=== PATIENT | female | born 1965 | race Caucasian/White ===

== ENCOUNTER 2017-05-09 18:39 | Emergency (ER) | payer BC, OTHER ==
[2017-05-09] MEDS ORDERED: Tobramycin 0.3% Ophth Oint 3.5 GM Tube EYELF ONE (19:13)
--- NOTE | 2017-05-09 19:21 | EDM.PDOC ---
ED HPI GENERAL MEDICAL PROBLEM - General Chief Complaint: Eye Problems Stated Complaint: POSSIBLE EYE INFECTION- LEFT EYE Time Seen by Provider: 05/09/17 19:07 - History of Present Illness INITIAL COMMENTS - FREE TEXT/NARRATIVE: HISTORY AND PHYSICAL: History of present illness: The patient is a 51-year-old female who presents with a 2 week history of eye irritation and some swelling that she thought was a stye which she place warm compresses on it and it seemed to get improved but over the last few days it has worsened again. She is not having blurred vision headache or other systemic complaints of fever chills runny nose sore throat head or neck pain. Her eye does not hurt she just feels that the eyelid is swollen and discomforting. She has some eye drainage and some crusting when she wakes up. Review of systems: As per history of present illness and below otherwise all systems reviewed and negative. Past medical history: As per history of present illness and as reviewed below otherwise noncontributory. Surgical history: As per history of present illness and as reviewed below otherwise noncontributory. Social history: No reported history of drug or alcohol abuse. Family history: As per history of present illness and as reviewed below otherwise noncontributory. Physical exam: General: Well-developed well-nourished female who is nontoxic and vital signs are noted by me. HEENT: Atraumatic, normocephalic, pupils reactive, EOMs are intact, there is some diffuse swelling upper eyelid margin on the left more laterally but no focal area is seen. There is minimal redness of the inside of the upper lid and minimal conjunctival erythema, there is no gross drainage or crusting appreciated, the sclera is slightly injected, the right eye is without any defects or deformities, negative for conjunctival pallor or scleral icterus, mucous membranes moist, throat clear, neck supple, nontender, trachea midline. Lungs: Clear to auscultation, breath sounds equal bilaterally, chest nontender. Heart: S1S2, regular rate and rhythm no overt murmurs Abdomen: Soft, nondistended, nontender. NABS Pelvis: Deferred Genitourinary: Deferred. Rectal: Deferred. Extremities: Atraumatic, negative for cords or calf pain. Neurovascular unremarkable. Neuro: Awake, alert, oriented. Cranial nerves II through XII unremarkable. Cerebellum unremarkable. Motor and sensory unremarkable throughout. Exam nonfocal. Diagnostics: visual acuity---20/20 right left and both Therapeutics: tobramycin ointment for ED and home Impression: Blepharitis, left Definitive disposition and diagnosis as appropriate pending reevaluation and review of above. Left Eyelid Pain Score (Numeric/FACES): 2 - Related Data Allergies Allergy/AdvReac Type Severity Reaction Status Date / Time No Known Allergies Allergy Verified 05/09/17 18:57 Home Meds: Home Meds Levothyroxine 25 mcg PO ACBREAKFAST 08/19/14 [History] Meloxicam 15 mg PO DAILY 05/09/17 [History] Social & Family History - Family History Family Medical History: Noncontributory - Tobacco Use Smoking Status *Q: Current Every Day Smoker Years of Tobacco use: 30 Packs/Tins Daily: 1 - Recreational Drug Use Recreational Drug Use: No ED ROS GENERAL - Review of Systems Review Of Systems: ROS reveals no pertinent complaints other than HPI. ED EXAM GENERAL W FULL EYE - Physical Exam Exam: See Below (See dictation) Course - Vital Signs Last Recorded V/S: Last Vital Signs Temp 36.7 C 05/09/17 19:01 Pulse 80 05/09/17 19:01 Resp 18 05/09/17 19:01 BP 145/84 H 05/09/17 19:01 Pulse Ox 96 05/09/17 19:01 - Orders/Labs/Meds Orders: Active Orders 24 hr Category Date Time Status Tobramycin [Tobrex 0.3% Ophth Oint] Med 05/09/17 19:13 Once 0.25 gm EYELF ONETIME ONE Departure - Departure Time of Disposition: 19:22 Disposition: Home, Self-Care 01 Condition: Good Clinical Impression: Blepharitis Qualifiers: Blepharitis type: unspecified type Laterality: left Eyelid: upper Qualified Code(s): H01.004 - Unspecified blepharitis left upper eyelid - Discharge Information Referrals: Keke Power PA-C [Primary Care Provider] - Additional Instructions: The following information is given to patients seen in the emergency department who are being discharged to home. This information is to outline your options for follow-up care. We provide all patients seen in our emergency department with a follow-up referral. The need for follow-up, as well as the timing and circumstances, are variable depending upon the specifics of your emergency department visit. If you don't have a primary care physician on staff, we will provide you with a referral. We always advise you to contact your personal physician following an emergency department visit to inform them of the circumstance of the visit and for follow-up with them and/or the need for any referrals to a consulting specialist. The emergency department will also refer you to a specialist when appropriate. This referral assures that you have the opportunity for followup care with a specialist. All of these measure are taken in an effort to provide you with optimal care, which includes your followup. Under all circumstances we always encourage you to contact your private physician who remains a resource for coordinating your care. When calling for followup care, please make the office aware that this follow-up is from your recent emergency room visit. If for any reason you are refused follow-up, please contact the [facility] emergency department at and ask to speak to the emergency department charge nurse. [facility] [place] [address] [facility] [address] [place] [address] Please apply ointment to your left eye every 6 hours while awake for the next one week. Please try to avoid irritation and rubbing of the eye. These call and follow-up with one of our clinic providers or your provider for follow-up care and also schedule a follow-up visit with our singer songwriter at [facility]. Return to ER as needed and as discussed - My Orders Last 24 Hours: My Active Orders 05/09/17 19:13 Tobramycin [Tobrex 0.3% Ophth Oint] 0.25 gm EYELF ONETIME ONE - Assessment/Plan Last 24 Hours: My Active Orders 05/09/17 19:13 Tobramycin [Tobrex 0.3% Ophth Oint] 0.25 gm EYELF ONETIME ONE
[2017-05-09 19:38] VITALS: BP 134/77
== END 2017-05-09 19:35 | disposition home or self-care (01) ==
LOC: MW.ED 18:39
DX: H01.004 Unspecified blepharitis left upper eyelid (principal); F17.210 Nicotine dependence, cigarettes, uncomplicated; Z79.899 Other long term (current) drug therapy
CPT/HCPCS: 99282; A9270

== ENCOUNTER 2018-05-22 07:00 | Emergency (ER) | payer BC, OTHER ==
[2018-05-22] MEDS ORDERED: Ketorolac 60 MG/2 ML SDV IM ONE (07:09)
[2018-05-22 07:18] VITALS: BP 122/78
--- NOTE | 2018-05-22 07:45 | EDM.PDOC ---
ED HPI GENERAL MEDICAL PROBLEM - General Chief Complaint: Upper Extremity Injury/Pain Stated Complaint: LT SHOULDER HURTS Time Seen by Provider: 05/22/18 07:36 - History of Present Illness INITIAL COMMENTS - FREE TEXT/NARRATIVE: HISTORY AND PHYSICAL: History of present illness: This 52-year-old white female presents with concern of left shoulder pain after having injured her shoulder prior in reinjured it recently. She requests x-ray there is no direct trauma she denies any other concern. Review of systems: As per history of present illness and below otherwise all systems reviewed and negative. Past medical history: As per history of present illness and as reviewed below otherwise noncontributory. Surgical history: As per history of present illness and as reviewed below otherwise noncontributory. Social history: No reported history of drug or alcohol abuse. Family history: As per history of present illness and as reviewed below otherwise noncontributory. Physical exam: HEENT: Atraumatic, normocephalic, pupils reactive, negative for conjunctival pallor or scleral icterus, mucous membranes moist, throat clear, neck supple, nontender, trachea midline. Lungs: Clear to auscultation, breath sounds equal bilaterally, chest nontender. Heart: S1S2, regular, negative for clicks, rubs, or JVD. Abdomen: Soft, nondistended, nontender. Negative for masses or hepatosplenomegaly. Negative for costovertebral tenderness. Pelvis: Stable nontender. Genitourinary: Deferred. Rectal: Deferred. Extremities: Left shoulder some mild tenderness to palpation she has limited range of motion secondary pain CMS neurovascular exams unremarkable Neuro: Awake, alert, oriented. Cranial nerves II through XII unremarkable. Cerebellum unremarkable. Motor and sensory unremarkable throughout. Exam nonfocal. Diagnostics: X-ray left shoulder Therapeutics: Toradol 60 mg IM Impression: #1 shoulder injury Definitive disposition and diagnosis as appropriate pending reevaluation and review of above. left shoulder Pain Score (Numeric/FACES): 7 - Related Data Allergies Allergy/AdvReac Type Severity Reaction Status Date / Time No Known Allergies Allergy Verified 05/22/18 07:13 Home Meds: Home Meds Levothyroxine 12.5 mcg PO ACBREAKFAST 08/19/14 [History] Meloxicam 15 mg PO DAILY 05/09/17 [History] Acetaminophen/HYDROcodone [[place] 325-5 MG] 1 tab PO ASDIRECTED PRN 05/22/18 [ History] Past Medical History Endocrine/Metabolic History: Reports: Hypothyroidism - Infectious Disease History Infectious Disease History: Reports: Chicken Pox - Past Surgical History Musculoskeletal Surgical History: Reports: Hip Replacement Other Musculoskeletal Surgeries/Procedures:: knee surgery Social & Family History - Family History Family Medical History: Noncontributory - Tobacco Use Smoking Status *Q: Current Every Day Smoker Years of Tobacco use: 35 Packs/Tins Daily: 0.5 - Recreational Drug Use Recreational Drug Use: No Review of Systems - Review of Systems Review Of Systems: ROS reveals no pertinent complaints other than HPI. ED EXAM, GENERAL - Physical Exam Exam: See Below (dictation) Course - Vital Signs Last Recorded V/S: Last Vital Signs Temp 35.8 C 05/22/18 07:14 Pulse 104 H 05/22/18 07:14 Resp 18 05/22/18 07:14 BP 122/78 05/22/18 07:14 Pulse Ox 96 05/22/18 07:14 - Orders/Labs/Meds Orders: Active Orders 24 hr Category Date Time Status Shoulder 1V Lt [CR] Stat Exams 05/22/18 07:10 Stop Req Shoulder Comp Lt [CR] Stat Exams 05/22/18 07:23 Ordered Meds: Medications Discontinued Medications Generic Name Dose Route Start Last Admin Trade Name Freq PRN Reason Stop Dose Admin Ketorolac Tromethamine 60 mg 05/22/18 07:09 05/22/18 07:34 Toradol IM 05/22/18 07:10 60 mg ONETIME ONE Administration Departure - Departure Time of Disposition: 07:43 Disposition: Home, Self-Care 01 Condition: Good Clinical Impression: Shoulder injury - Discharge Information Referrals: PCP,None [Primary Care Provider] - Additional Instructions: The following information is given to patients seen in the emergency department who are being discharged to home. This information is to outline your options for follow-up care. We provide all patients seen in our emergency department with a follow-up referral. The need for follow-up, as well as the timing and circumstances, are variable depending upon the specifics of your emergency department visit. If you don't have a primary care physician on staff, we will provide you with a referral. We always advise you to contact your personal physician following an emergency department visit to inform them of the circumstance of the visit and for follow-up with them and/or the need for any referrals to a consulting specialist. The emergency department will also refer you to a specialist when appropriate. This referral assures that you have the opportunity for followup care with a specialist. All of these measure are taken in an effort to provide you with optimal care, which includes your followup. Under all circumstances we always encourage you to contact your private physician who remains a resource for coordinating your care. When calling for followup care, please make the office aware that this follow-up is from your recent emergency room visit. If for any reason you are refused follow-up, please contact the [facility] emergency department at and asked to speak to the emergency department charge nurse. [facility] - [facility] Professional [address], [address] [place] [address] Sling as directed follow-up orthopedic clinic return as needed as discussed - My Orders Last 24 Hours: My Active Orders 05/22/18 07:10 Shoulder 1V Lt [CR] Stat 05/22/18 07:23 Shoulder Comp Lt [CR] Stat - Assessment/Plan Last 24 Hours: My Active Orders 05/22/18 07:10 Shoulder 1V Lt [CR] Stat 05/22/18 07:23 Shoulder Comp Lt [CR] Stat
--- NOTE | 2018-05-22 07:46 | CR ---
HISTORY: Left shoulder pain. TECHNIQUE: Three views of the left shoulder. COMPARISON: No prior. FINDINGS: There is no acute fracture or dislocation. Chronic deformity of the distal clavicle with adjacent chronic ossicle likely reflecting sequelae of remote trauma. There is some spurring of the expected attachment of the coracoclavicular ligament to the clavicle. The glenohumeral joint space appears maintained. Type 2 acromial morphology. Remote fractures of a few left posterior ribs. IMPRESSION: 1. No acute fracture or dislocation. 2. Deformity of the distal clavicle along with a small focus of adjacent chronic ossification likely reflecting sequelae of remote trauma (prior AC joint separation and/or prior distal clavicular fracture). 3. Several remote healed left posterior rib fractures. Dictated by Rob Romeo MD @ 05/22/2018 7:45:36 AM Dictated by: Rob Romeo MD @ 05/22/2018 07:45:40 (Electronically Signed)
== END 2018-05-22 07:56 | disposition home or self-care (01) ==
LOC: MW.ED 07:00
DX: S49.92XA Unspecified injury of left shoulder and upper arm, initial encounter (principal); E03.9 Hypothyroidism, unspecified; F17.210 Nicotine dependence, cigarettes, uncomplicated; X58.XXXA Exposure to other specified factors, initial encounter
CPT/HCPCS: 73030; 96372; 99283; J1885

== ENCOUNTER 2019-10-17 22:13 | Emergency (ER) | payer BC, OTHER ==
[2019-10-17] MEDS ORDERED: Ibuprofen 800 MG Tab PO ONE (22:29)
--- NOTE | 2019-10-17 22:38 | EDM.PDOC ---
ED HPI GENERAL MEDICAL PROBLEM - General Chief Complaint: Upper Extremity Injury/Pain Stated Complaint: tripped over pet possible arm injury Time Seen by Provider: 10/17/19 22:16 Source of Information: Reports: Patient History Limitations: Reports: No Limitations - History of Present Illness INITIAL COMMENTS - FREE TEXT/NARRATIVE: History of present illness: [Patient is 53-year-old female who had a mechanical fall, tripping over her cat, landing on her right arm on the floor at home. She denies any head trauma or loss of consciousness. She complains of right elbow pain. She denies pain anywhere else. She was able to ambulate on her own after the fall. She has not taken any medicine to treat her symptoms or tried any interventions to deal with her pain. Pain in the elbow is exacerbated by palpation and movement. No other complaints or issues at this time.] Review of systems: As per history of present illness and below otherwise all systems reviewed and negative. Past medical history: As per history of present illness and as reviewed below otherwise noncontributory. Surgical history: As per history of present illness and as reviewed below otherwise no ncontributory. Social history: No reported history of drug or alcohol abuse. Family history: As per history of present illness and as reviewed below otherwise noncontributory. Physical exam: General: Awake, alert, no acute distress, A&O X3. HEENT: Atraumatic, normocephalic, pupils reactive, negative for conjunctival pallor or scleral icterus, mucous membranes moist, throat clear, neck supple, nontender, trachea midline. Lungs: Clear to auscultation, breath sounds equal bilaterally, chest nontender. Heart: RRR, normal S1S2, no JVD. Abdomen: Soft, nondistended, nontender. Negative for masses or hepatosplenomegaly. Negative for costovertebral tenderness. Pelvis: Stable nontender. Genitourinary: Deferred. Rectal: Deferred. Extremities: right elbow is mildly tender to palpation, no gross deformity, right arm is NV intact. pain worsened with full extension of elbow. no edema, Neurovascular unremarkable. Neuro: Motor and sensory grossly intact throughout. Exam nonfocal. Diagnostics: [] Therapeutics: [] Impression: [] Plan: [] Definitive disposition and diagnosis as appropriate pending reevaluation and review of above. Right Elbow Pain Score (Numeric/FACES): 7 - Related Data Allergies Allergy/AdvReac Type Severity Reaction Status Date / Time No Known Allergies Allergy Verified 10/17/19 22:24 Home Meds: Home Meds Levothyroxine 12.5 mcg PO ACBREAKFAST 08/19/14 [History] Meloxicam 15 mg PO DAILY 05/09/17 [History] Past Medical History HEENT History: Reports: None Cardiovascular History: Reports: None Respiratory History: Reports: None Gastrointestinal History: Reports: None Genitourinary History: Reports: None ORDER MANAGER History: Reports: None Neurological History: Reports: None Psychiatric History: Reports: None Endocrine/Metabolic History: Reports: Hypothyroidism Hematologic History: Reports: None Immunologic History: Reports: None Oncologic (Cancer) History: Reports: None Dermatologic History: Reports: None - Infectious Disease History Infectious Disease History: Reports: None - Past Surgical History Head Surgeries/Procedures: Reports: None Musculoskeletal Surgical History: Reports: Hip Replacement Other Musculoskeletal Surgeries/Procedures:: knee surgery Social & Family History - Family History Family Medical History: Noncontributory - Tobacco Use Smoking Status *Q: Current Every Day Smoker Years of Tobacco use: 25 Packs/Tins Daily: 0.3 - Caffeine Use Caffeine Use: Reports: None - Recreational Drug Use Recreational Drug Use: No Review of Systems - Review of Systems Review Of Systems: Comprehensive ROS is negative, except as noted in HPI. ED EXAM, GENERAL - Physical Exam Exam: See Below (see h and p) Course - Vital Signs Text/Narrative:: No evidence for fracture in the elbow. Sling provided, encouraged her to follow-up in the outpatient setting with PCP. Encouraged [id number] pain medicine as needed and directed for pain control. Patient is otherwise well- appearing, she is agreeable with this plan. Nontoxic and stable at discharge. Last Recorded V/S: Last Vital Signs Temp 36.4 C 10/17/19 22:22 Pulse 77 10/17/19 22:22 Resp 18 10/17/19 22:22 BP 107/56 L 10/17/19 22:22 Pulse Ox 98 10/17/19 22:22 - Orders/Labs/Meds Orders: Active Orders 24 hr Category Date Time Status Communication Order [RC] STAT Care 10/17/19 23:20 Active Meds: Medications Discontinued Medications Generic Name Dose Route Start Last Admin Trade Name Freq PRN Reason Stop Dose Admin Ibuprofen 800 mg 08/17/20 22:29 10/17/19 22:44 Motrin PO 10/17/19 22:30 800 mg ONETIME ONE Administration Departure - Departure Time of Disposition: 23:25 Disposition: Home, Self-Care 01 Condition: Good Clinical Impression: Elbow sprain - Discharge Information Instructions: Elbow Sprain Referrals: Lukas Swanson MD [Primary Care Provider] - Forms: ED Department Discharge Additional Instructions: [facility] - Orthopedic Clinic [address], [address] [place] [address] Follow-up with primary care doctor. Return to the ER with any new or worsening symptoms. The following information is given to patients seen in the emergency department who are being discharged to home. This information is to outline your options for follow-up care. We provide all patients seen in our emergency department with a follow-up referral. The need for follow-up, as well as the timing and circumstances, are variable depending upon the specifics of your emergency department visit. If you don't have a primary care physician on staff, we will provide you with a referral. We always advise you to contact your personal physician following an emergency department visit to inform them of the circumstance of the visit and for follow-up with them and/or the need for any referrals to a consulting specialist. The emergency department will also refer you to a specialist when appropriate. This referral assures that you have the opportunity for follow-up care with a specialist. All of these measure are taken in an effort to provide you with optimal care, which includes your follow-up. Under all circumstances we always encourage you to contact your private physician who remains a resource for coordinating your care. When calling for follow-up care, please make the office aware that this follow-up is from your recent emergency room visit. If for any reason you are refused follow-up, please contact the Emergency Department at and asked to speak to the emergency department charge nurse. Sepsis Event Note (ED) - Evaluation Sepsis Screening Result: No Definite Risk - Focused Exam Vital Signs: Vital Signs Temp Pulse Resp BP Pulse Ox 10/17/19 22:22 36.4 C 77 18 107/56 L 98 - My Orders Last 24 Hours: My Active Orders 10/17/19 23:20 Communication Order [RC] STAT - Assessment/Plan Last 24 Hours: My Active Orders 10/17/19 23:20 Communication Order [RC] STAT
--- NOTE | 2019-10-17 23:18 | CR ---
HISTORY: Pain after fall COMPARISON: None available. FINDINGS: The right elbow is examined with AP, lateral, and oblique views. There is extensive soft tissue irregularity along the ulnar aspect of the elbow consistent with a large laceration. There is a small radiodensity within the laceration measuring 4 millimeters in length adjacent to the ulnar humeral condyle. This is probably a small foreign body located within the laceration, although it could be a displaced soft tissue ossification, since 2 similar shaped calcific densities are seen more proximally immediately adjacent to the ulnar humeral condyle. There is no sign of fracture, dislocation, or joint effusion. There is soft tissue ossification adjacent to the radial humeral condyle consistent with previous soft tissue injury. No additional soft tissue injury is seen elsewhere. No degenerative disease is seen. IMPRESSION: Extensive soft tissue laceration along the ulnar aspect of the elbow. 4 millimeter long radiopaque foreign body in the laceration versus displaced ossification from previous soft tissue injury. No sign of acute osseous injury. Dictated by David Newman MD @ Oct 17 2019 11:11PM Signed by Dr. David Newman @ Oct 17 2019 11:15PM
[2019-10-17 23:48] VITALS: BP 108/71; PULSE 78
== END 2019-10-17 23:40 | disposition home or self-care (01) ==
LOC: MW.ED 22:13
DX: S53.401A Unspecified sprain of right elbow, initial encounter (principal); F17.210 Nicotine dependence, cigarettes, uncomplicated; Z79.899 Other long term (current) drug therapy; W01.0XXA Fall on same level from slipping, tripping and stumbling without subsequent striking against object, initial encounter; Y92.009 Unspecified place in unspecified non-institutional (private) residence as the place of occurrence of the external cause
CPT/HCPCS: 73080; 99283; A9270

== ENCOUNTER 2020-10-20 21:08 | Emergency (ER) | payer OTHER ==
[2020-10-20] MEDS ORDERED: Ondansetron 4 MG/2 ML SDV ONE (21:12)
[2020-10-20] MEDS ORDERED: Sodium Chloride 0.9% 10 ML Syringe FLUSH PRN (21:18)
[2020-10-20] MEDS ORDERED: Sodium Chloride 0.9% 1,000 ML IV ONE (21:18)
[2020-10-20] MEDS ORDERED: Ondansetron 4 MG/2 ML SDV IVPUSH ONE (21:18)
[2020-10-20] MEDS ORDERED: Sodium Chloride 0.9% 2.5 ML Syringe FLUSH PRN (21:18)
[2020-10-20] MEDS ORDERED: Iopamidol 755 MG/ML 500 ML Multipack Bottle IVPUSH STA (21:24)
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
[2020-10-20 21:54] LABS: BLOOD UREA NITROGEN,BUN 9 mg/dL (7.0-18.0); CARBON DIOXIDE,CO2 20.9 mmol/L (21.0-32.0); CHLORIDE,CL 101 mmol/L (98-107); GLUCOSE RANDOM 95 mg/dL (74-106); LIPASE 161 U/L (73-393); POTASSIUM,K 3.2 mmol/L (3.5-5.1); SODIUM,NA 135 mmol/L (136-145)
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
[2020-10-20] MEDS ORDERED: Thiamine 200 MG/2 ML MDV IVPUSH STA (22:13)
[2020-10-20] MEDS ORDERED: Multivitamin Tab PO STA (22:13)
[2020-10-20] MEDS ORDERED: Folic Acid 50 MG/10 ML MDV IV STA (22:13)
[2020-10-20] MEDS ORDERED: Ketorolac 15 MG/ML SDV IVPUSH STA (22:15)
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
[2020-10-20] MEDS ORDERED: Potassium Chloride 10% 20 MEQ/15 ML Soln 30 ML UD Cup PO ONE (23:39)
[2020-10-21 00:16] VITALS: BP 106/51; PULSE 97
--- NOTE | 2020-10-21 02:05 | PCM.EKG ---
#1 Interpretation EKG Interpretation Comments: EKG date 10/20/2020 10:03 PM EKG: As interpreted by ER physician: Paco: Nonspecific ST-T wave abnormalities Normal axis No evidence of ST elevation LA Normal sinus rhythm heart rate of 73
== END 2020-10-21 00:17 | disposition home or self-care (01) ==
LOC: MW.ED 21:08
DX: S09.90XA Unspecified injury of head, initial encounter (principal); F10.120 Alcohol abuse with intoxication, uncomplicated; M25.562 Pain in left knee; E03.9 Hypothyroidism, unspecified; Y90.7 Blood alcohol level of 200-239 mg/100 ml; Z79.899 Other long term (current) drug therapy; V89.2XXA Person injured in unspecified motor-vehicle accident, traffic, initial encounter
CPT/HCPCS: 36415; 70450; 71045; 72125; 73562; 74177; 80053; 80305; 80307; 81003; 83690; 84703; 85025; 93005; 96374; 96375; 99285; A9270; J1885; J2405; J3411; J7030; Q9967; 99284

== ENCOUNTER 2022-10-06 07:33 | Emergency (ER) | payer BC ==
[2022-10-06 09:36] VITALS: BP 152/91; PULSE 52
== END 2022-10-06 09:35 | disposition home or self-care (01) ==
LOC: MW.ED 07:33
DX: M25.551 Pain in right hip (principal); I10 Essential (primary) hypertension; E03.9 Hypothyroidism, unspecified; F17.210 Nicotine dependence, cigarettes, uncomplicated; Z86.16 Personal history of COVID-19; Z79.899 Other long term (current) drug therapy
CPT/HCPCS: 73502-26-RT; 73502-RT; 99283

== ENCOUNTER 2023-11-10 16:57 | Emergency (ER) | payer OTHER, BC ==
[2023-11-10 17:24] VITALS: BP 164/80; PULSE 70
[2023-11-10] MEDS: Azithromycin 250 MG Tab PO ONE (18:17)
[2023-11-10] MEDS: Ibuprofen 600 MG Tab PO ONE (18:18)
[2023-11-10] MEDS: Diphtheria,Pertussis(Acell),Tetanus Vaccine 0.5 ML Syringe IM ONE (18:18)
== END 2023-11-10 19:02 | disposition home or self-care (01) ==
LOC: MW.ED 16:57
DX: S02.2XXB Fracture of nasal bones, initial encounter for open fracture (principal); S43.401A Unspecified sprain of right shoulder joint, initial encounter; S43.402A Unspecified sprain of left shoulder joint, initial encounter; H65.92 Unspecified nonsuppurative otitis media, left ear; I10 Essential (primary) hypertension; E03.9 Hypothyroidism, unspecified; Z23 Encounter for immunization; Z79.890 Hormone replacement therapy; Z79.899 Other long term (current) drug therapy; Z75.8 Other problems related to medical facilities and other health care; W01.0XXA Fall on same level from slipping, tripping and stumbling without subsequent striking against object, initial encounter
CPT/HCPCS: 70160; 73030; 73090; 90471; 90715; 99283; A9270; 12011

== ENCOUNTER 2024-01-24 10:54 | Emergency (ER) | payer BC, OTHER ==
[2024-01-24 11:14] LABS: APPEARANCE,URINE SLT CLOUDY; GLUCOSE,URINE 250 mg/dL (NEGATIVE); KETONES,URINE TRACE mg/dL (NEGATIVE); LEUKOCYTE ESTERASE,URINE SMALL (NEGATIVE); NITRITE,URINE POSITIVE (NEGATIVE); OCCULT BLOOD,URINE NEGATIVE (NEGATIVE); PH,URINE 6.5 (5.0-8.0); PROTEIN,URINE 100 mg/dL (NEGATIVE); UROBILINOGEN,URINE >=8.0 EU/dL (<2.0)
[2024-01-24 11:18] LABS: BILIRUBIN,URINE MODERATE (NEGATIVE); COLOR,URINE DARK YELLOW
[2024-01-24 11:25] LABS: BACTERIA,URINE FEW (NEGATIVE); MUCUS,URINE LIGHT (NONE-MOD); RBC,URINE 0-2 (0-2/HPF); SQUAMOUS EPITHELIAL CELLS,UR OCCASIONAL
[2024-01-24 11:46] VITALS: BP 135/96; PULSE 56
== END 2024-01-24 11:47 | disposition home or self-care (01) ==
LOC: MW.ED 10:54
DX: N39.0 Urinary tract infection, site not specified (principal); I10 Essential (primary) hypertension; E78.00 Pure hypercholesterolemia, unspecified; E03.9 Hypothyroidism, unspecified; Z75.8 Other problems related to medical facilities and other health care; Z79.890 Hormone replacement therapy; Z79.899 Other long term (current) drug therapy
CPT/HCPCS: 81001; 87086; 99283